=== PATIENT | female | born 2000 | race Caucasian/White ===

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

== ENCOUNTER 2021-01-23 00:19 | Emergency (ER) | payer SELFPAY ==
[~2021-01-23] VITALS: Ht 162.6 cm; Wt 66.0 kg
[2021-01-23 00:39] VITALS: BP 122/82
[2021-01-23] MEDS ORDERED: BACITRACIN ZINC OINT UDPKT TOP ONE (04:00)
[2021-01-23] MEDS ORDERED: BO1 TP (04:51)
[2021-01-23] MEDS ORDERED: TOPUD PO (04:51)
== END 2021-01-23 05:12 | disposition home or self-care (01) ==
LOC: ER 00:19
DX: S09.8XXA Other specified injuries of head, initial encounter (principal); M25.562 Pain in left knee; V49.49XA Driver injured in collision with other motor vehicles in traffic accident, initial encounter; Y93.89 Activity, other specified; Y92.89 Other specified places as the place of occurrence of the external cause; Y99.8 Other external cause status
CPT/HCPCS: 73130; 73562; 81025; 99284

== ENCOUNTER 2023-12-22 01:10 | Emergency (ER) | payer BC ==
[~2023-12-22] VITALS: Ht 165.1 cm; Wt 95.0 kg
[~2023-12-22 01:10] MED LIST: BO1 TP; TOPUD PO
[2023-12-22 01:18] VITALS: PULSE 121
[2023-12-22 01:26] VITALS: BP 137/91; RESP 16; TEMP 98.7; O2SAT 96
[2023-12-22] MEDS ORDERED: IBUP-2028 MT (03:54)
[2023-12-22] MEDS ORDERED: CEPH500C2 MT (03:54)
== END 2023-12-22 04:26 | disposition home or self-care (01) ==
LOC: ER 01:10
DX: S91.119A Laceration without foreign body of unspecified toe without damage to nail, initial encounter (principal); Z41.1 Encounter for cosmetic surgery; X58.XXXA Exposure to other specified factors, initial encounter; Y93.89 Activity, other specified; Y92.89 Other specified places as the place of occurrence of the external cause; Y99.8 Other external cause status
CPT/HCPCS: 73630; 81025; 99283